=== PATIENT | male | born 1950 | race Caucasian/White ===

== ENCOUNTER → 2017-02-21 | Outpatient (CLI) | payer BC ==
[~2017-02-21] MED LIST: CHOL100010 PO; CLR10 PO; FLUT0.15 NAE; MULT-513 PO; OXYC-57 PO; PSYL48.59 PO; ZNTT/150 PO; [UNRECOGNIZED DRUG - CODE] NAE
[2017-02-21 14:16] LABS: BASO % 0.4 %; BASO ABS # 0.03 K/uL (0-0.2); COMPLETE YES; EOS % 3.5 %; HEMATOCRIT 46.5 % (42-52); IG% 0.1 %; LYMPH % 37.1 %; LYMPH ABS # 2.64 K/uL (1.2-3.4); MEAN CORPUSCULAR HEMOGLOBIN 31.6 pg (25-34); MEAN PLATELET VOLUME 9.7 fL (7.4-10.4); MONO % 7.9 %; PLATELET COUNT 135 K/uL (130-400); WHITE BLOOD COUNT 7.12 K/uL (4.8-10.8)
[2017-02-21 14:35] LABS: ALT/SGPT 37 U/L (12-78); AST/SGOT 25 U/L (15-37); BLOOD UREA NITROGEN 11 mg/dl (7-18); BUN/CREATININE RATIO 11.6 (10-20); CALCIUM 8.9 mg/dl (8.5-10.1); CARBON DIOXIDE 32 mmol/L (21-32); CHLORIDE 103 mmol/L (98-107); CHOLESTEROL 191 mg/dl (0-200); CREATININE 0.94 mg/dl (0.60-1.40); GLUCOSE 101 mg/dl (70-99); SODIUM 140 mmol/L (136-145)
[2017-02-21 14:40] LABS: ALB/GLOB RATIO 0.9 (0.9-2); ALKALINE PHOSPHATASE 60 U/L (45-117); CHOLESTEROL/HDL RATIO 3.3; HDL CHOLESTEROL 58 mg/dl; LDL CHOLESTEROL CALCULATED 104 mg/dl; TRIGLYCERIDES 144 mg/dl (0-150); VERY LOW DENSITY LIPOPROT CALC 29 mg/dl
== END | disposition home or self-care (01) ==
LOC: C.LABBC 09:47
PROVIDERS: ATTEND Nurse Practitioner Family
DX: K21.0 Gastro-esophageal reflux disease with esophagitis (principal); K76.0 Fatty (change of) liver, not elsewhere classified; Z13.220 Encounter for screening for lipoid disorders; R73.01 Impaired fasting glucose; R74.0 Nonspecific elevation of levels of transaminase and lactic acid dehydrogenase [LDH]; Z12.5 Encounter for screening for malignant neoplasm of prostate

== ENCOUNTER 2017-02-23 08:46 | Emergency (ER) | payer BC ==
[~2017-02-23] VITALS: Ht 175.3 cm; Wt 76.0 kg
[~2017-02-23 08:46] MED LIST changes: -FLUT0.15 NAE; -OXYC-57 PO; -PSYL48.59 PO
[2017-02-23 08:49] VITALS: TEMP 36.3; Ht 175.3 cm; Wt 76.0 kg
[2017-02-23 09:23] LABS: BASO % 0.3 %; BASO ABS # 0.02 K/uL (0-0.2); COMPLETE YES; EOS % 3.2 %; HEMATOCRIT 43.9 % (42-52); IG% 0.1 %; LYMPH % 29.3 %; LYMPH ABS # 2.03 K/uL (1.2-3.4); MEAN CORPUSCULAR HEMOGLOBIN 31.7 pg (25-34); MEAN CORPUSCULAR HGB CONC 34.4 g/dl (32-36); MEAN PLATELET VOLUME 9.1 fL (7.4-10.4); MONO % 8.9 %; NEUT % 58.2 %; PLATELET COUNT 122 K/uL (130-400); RED BLOOD COUNT 4.77 M/uL (4.7-6.1); WHITE BLOOD COUNT 6.93 K/uL (4.8-10.8)
--- NOTE | 2017-02-23 09:34 | DIAGNOSTIC IMAGING REPORT ---
CT SCAN OF THE ABDOMEN AND PELVIS WITHOUT CONTRAST CLINICAL HISTORY: Right-sided abdominal pain COMPARISON STUDY: Renal ultrasound dated 12/25/2015 TECHNIQUE: CT scan of the abdomen and pelvis was performed from the lung bases to the proximal femurs. Images are reviewed in the axial, sagittal, and coronal planes. IV contrast was not administered for this examination. A dose lowering technique was utilized adhering to the principles of ALARA. CT DOSE: 574.21 mGy.cm FINDINGS: Lower chest: The heart is normal in size and configuration, without pericardial effusion. The lung bases and pleural spaces are clear. Liver: The unenhanced liver is normal in size, contour, and attenuation. There is no intrahepatic biliary ductal dilatation. Gallbladder: Unremarkable. Spleen: Normal in size and attenuation. Pancreas: Unremarkable. Adrenal glands: There is minor bilateral adrenal gland thickening Kidneys: There is a 2 mm right renal calculus. There are bilateral parapelvic cysts. No ureteral or bladder calculi are visualized. Bowel: There are no transition zones indicate bowel obstruction. The appendix is mildly enlarged measuring 8 mm. The appendix contains air and stool. There are no periappendiceal inflammatory changes. There are no findings to indicate acute appendicitis. There is no evidence of acute diverticulitis. Peritoneum: There is no intraperitoneal free air or abdominal ascites. Vasculature: The abdominal aorta is normal in course and caliber. Adenopathy: There is very slight infiltration of the central mesentery with mesenteric lymph nodes are the upper limits of normal in size. Pelvic viscera: The prostate is enlarged measuring 49 mm Skeletal structures: No destructive osseous lesions are visualized. There are degenerative changes present within the lumbar spine and hips. IMPRESSION: 1. Nonobstructing 2 mm right renal calculus 2. No ureteral or bladder calculi identified 3. No evidence of bowel obstruction. No evidence of free air 4. No evidence of acute diverticulitis. No evidence of acute appendicitis 5. Nonspecific slight infiltration central mesentery with mildly prominent mesenteric lymph nodes. Electronically signed by: Tristen Youngblood M.D. 02/23/2017 9:33 AM Dictated Date/Time: 02/23/2017 9:28 AM
[2017-02-23 09:39] LABS: BUN/CREATININE RATIO 14.5 (10-20); CREATININE 0.93 mg/dl (0.60-1.40); POTASSIUM 3.7 mmol/L (3.5-5.1)
[2017-02-23] MEDS ORDERED: FLUT0.15 NAE (09:43)
[2017-02-23] MEDS ORDERED: PSYL48.59 PO (09:43)
[2017-02-23 10:15] LABS: URINE APPEARANCE CLEAR (CLEAR); URINE BILIRUBIN NEG (NEG); URINE COLOR YELLOW; URINE NITRITE NEG (NEG); URINE PH 6.5 (4.5-7.5); URINE SPECIFIC GRAVITY 1.015 (1.000-1.030); UROBILINOGEN NEG (NEG)
[2017-02-23 10:19] LABS: MANUAL MICROSCOPIC REQUIRED? NO; REVIEW REQ? NO
[2017-02-23] MEDS ORDERED: OXYC-57 PO (10:36)
[2017-02-23] MEDS ORDERED: PERCOCET HOME PACK PO STA (10:37)
[2017-02-23 10:58] VITALS: BP 121/78; PULSE 65; O2SAT 99
--- NOTE | 2017-02-23 12:34 | EMERGENCY ROOM VISIT NOTE ---
History Report prepared by Paulo: Justina Mercer Under the Supervision of: Dr. Jermaine Walker M.D. First contact with patient: 08:53 Chief Complaint: ABDOMINAL PAIN Stated Complaint: R ABD PAIN UNDER RIB History of Present Illness The patient is a 66 year old male who presents to the Emergency Room with complaints of constant abdominal pain starting three hours ago. The patient states that he had the same pain two weeks ago that passed in an hour. He states that he assumed it was indigestion or gas. The patient reports that the pain is under his rib. He states that both times that he has had this pain it was right when he woke up and is intense. He reports that it appears to dissipate as time goes on. The patient denies back pain, pain with a deep breath , ever having abdominal surgery, and a history of kidney stones. The patient notes that he has had atrial flutter in the past. He also notes that he has had cysts on his kidney that were determined to be benign via a government employee. He states that he was told he has a fatty liver and notes that he quit drinking 3- 4 years ago. Source of History: patient Onset: 3 hours ago Position: abdomen Quality: other ("similar to inddigestion") Timing: constant Associated Symptoms: No back pain Review of Systems See HPI for pertinent positives & negatives. A total of 10 systems reviewed and were otherwise negative. Past Medical & Surgical Medical Problems: (1) Atrial flutter (2) Fatty liver (3) Kidney cysts Family History Patient reports no known family medical history. Social History Smoking Status: Former Smoker Marital Status: Housing Status: lives with significant other Current/Historical Medications Scheduled Cholecalciferol (Vitamin D), 2,000 PO DAILY Fluticasone Propionate (Nasal) (Flonase Allergy Relief), 1 SPRAY GIANNA DAILY Loratadine (Claritin), 10 MG PO DAILY Multivitamins/Minerals (Mvi With Minerals), 1 TAB PO DAILY Psyllium (Metamucil), 1 DOSE PO DAILY Scheduled PRN Oxycodone/Acetaminophen 5MG/325MG (Percocet 5MG/325MG), 1-2 TAB PO Q4H PRN for Pain Ranitidine (Zantac), 150 MG PO DAILY PRN for REFLUX Allergies Coded Allergies: Penicillins (Unverified Allergy, Mild, " A CHILD" UNKNOWN REACTION, ) Physical Exam Vital Signs Date Time Temp Pulse Resp B/P (MAP) Pulse Ox O2 Delivery O2 Flow Rate FiO2 02/23/17 10:58 65 18 121/78 99 02/23/17 09:31 68 02/23/17 08:49 36.3 74 20 126/81 98 Room Air Physical Exam GENERAL: Patient is a healthy-appearing well-nourished HEAD: Normocephalic atraumatic EYES: Ocular movements intact pupils equal and react to light OROPHARYNX mucous membranes are moist no exudates present no erythema or edema present NECK: Supple no nuchal rigidity CHEST: Good equal expansion LUNGS: Clear and equal to auscultation CARDIAC: Normal S1 and S2 ABDOMEN: Soft nontender no guarding BACK: No CVA tenderness EXTREMITIES: No pain upon palpation normal muscle strength in all groups no clubbing cyanosis or edema NEURO: Patient is following commands and answering questions appropriately. Alert and oriented x3 Cranial Nerves 2-12 grossly intact Medical Decision & Procedures ER Provider Diagnostic Interpretation: Radiology results as stated below per my review and radiologist interpretation: CT SCAN OF THE ABDOMEN AND PELVIS WITHOUT CONTRAST CLINICAL HISTORY: Right-sided abdominal pain COMPARISON STUDY: Renal ultrasound dated 12/25/2015 TECHNIQUE: CT scan of the abdomen and pelvis was performed from the lung bases to the proximal femurs. Images are reviewed in the axial, sagittal, and coronal planes. IV contrast was not administered for this examination. A dose lowering technique was utilized adhering to the principles of ALARA. CT DOSE: 574.21 mGy.cm FINDINGS: Lower chest: The heart is normal in size and configuration, without pericardial effusion. The lung bases and pleural spaces are clear. Liver: The unenhanced liver is normal in size, contour, and attenuation. There is no intrahepatic biliary ductal dilatation. Gallbladder: Unremarkable. Spleen: Normal in size and attenuation. Pancreas: Unremarkable. Adrenal glands: There is minor bilateral adrenal gland thickening Kidneys: There is a 2 mm right renal calculus. There are bilateral parapelvic cysts. No ureteral or bladder calculi are visualized. Bowel: There are no transition zones indicate bowel obstruction. The appendix is mildly enlarged measuring 8 mm. The appendix contains air and stool. There are no periappendiceal inflammatory changes. There are no findings to indicate acute appendicitis. There is no evidence of acute diverticulitis. Peritoneum: There is no intraperitoneal free air or abdominal ascites. Vasculature: The abdominal aorta is normal in course and caliber. Adenopathy: There is very slight infiltration of the central mesentery with mesenteric lymph nodes are the upper limits of normal in size. Pelvic viscera: The prostate is enlarged measuring 49 mm Skeletal structures: No destructive osseous lesions are visualized. There are degenerative changes present within the lumbar spine and hips. IMPRESSION: 1. Nonobstructing 2 mm right renal calculus 2. No ureteral or bladder calculi identified 3. No evidence of bowel obstruction. No evidence of free air 4. No evidence of acute diverticulitis. No evidence of acute appendicitis 5. Nonspecific slight infiltration central mesentery with mildly prominent mesenteric lymph nodes. Electronically signed by: Tristen Youngblood M.D. 02/23/2017 9:33 AM Dictated Date/Time: 02/23/2017 9:28 AM Laboratory Results 02/23/17 09:12 Red Blood Count 4.77, Mean Corpuscular Volume 92.0, Mean Corpuscular Hemoglobin 31.7, Mean Corpuscular Hemoglobin Concent 34.4, Mean Platelet Volume 9.1, Neutrophils (%) (Auto) 58.2, Lymphocytes (%) (Auto) 29.3, Monocytes (%) (Auto) 8.9, Eosinophils (%) (Auto) 3.2, Basophils (%) (Auto) 0.3, Neutrophils # (Auto) 4.03, Lymphocytes # (Auto) 2.03, Monocytes # (Auto) 0.62, Eosinophils # (Auto) 0.22, Basophils # (Auto) 0.02 02/23/17 09:12 Test 02/23/17 09:12 02/23/17 10:00 White Blood Count 6.93 K/uL (4.8-10.8) Red Blood Count 4.77 M/uL (4.7-6.1) Hemoglobin 15.1 g/dL (14.0-18.0) Hematocrit 43.9 % (42-52) Mean Corpuscular Volume 92.0 fL (80-100) Mean Corpuscular Hemoglobin 31.7 pg (25-34) Mean Corpuscular Hemoglobin Concent 34.4 g/dl (32-36) Platelet Count 122 K/uL (130-400) Mean Platelet Volume 9.1 fL (7.4-10.4) Neutrophils (%) (Auto) 58.2 % Lymphocytes (%) (Auto) 29.3 % Monocytes (%) (Auto) 8.9 % Eosinophils (%) (Auto) 3.2 % Basophils (%) (Auto) 0.3 % Neutrophils # (Auto) 4.03 K/uL (1.4-6.5) Lymphocytes # (Auto) 2.03 K/uL (1.2-3.4) Monocytes # (Auto) 0.62 K/uL (0.11-0.59) Eosinophils # (Auto) 0.22 K/uL (0-0.5) Basophils # (Auto) 0.02 K/uL (0-0.2) RDW Standard Deviation 45.1 fL (36.4-46.3) RDW Coefficient of Variation 13.4 % (11.5-14.5) Immature Granulocyte % (Auto) 0.1 % Immature Granulocyte # (Auto) 0.01 K/uL (0.00-0.02) Anion Gap 4.0 mmol/L (3-11) Est Creatinine Clear Calc Drug Dose 79.2 ml/min Estimated GFR () 99.5 Estimated GFR (Non- 85.8 BUN/Creatinine Ratio 14.5 (10-20) Calcium Level 9.0 mg/dl (8.5-10.1) Total Bilirubin 1.1 mg/dl (0.2-1) Direct Bilirubin 0.3 mg/dl (0-0.2) Aspartate Amino Transf (AST/SGOT) 27 U/L (15-37) Alanine Aminotransferase (ALT/SGPT) 35 U/L (12-78) Alkaline Phosphatase 81 U/L (45-117) Total Protein 8.1 gm/dl (6.4-8.2) Albumin 3.7 gm/dl (3.4-5.0) Lipase 161 U/L (73-393) Urine Color YELLOW Urine Appearance CLEAR (CLEAR) Urine pH 6.5 (4.5-7.5) Urine Specific Satin 1.015 (1.000-1.030) Urine Protein NEG (NEG) Urine Glucose (UA) NEG (NEG) Urine Ketones NEG (NEG) Urine Occult Blood NEG (NEG) Urine Nitrite NEG (NEG) Urine Bilirubin NEG (NEG) Urine Urobilinogen NEG (NEG) Urine Leukocyte Esterase NEG (NEG) Labs reviewed by ED physician. Medications Administered Medications (Trade) Dose Ordered Sig/Antoinette Route Start Time Stop Time Status Last Admin Dose Admin Oxycodone/ Acetaminophen (Percocet 5/ 325MG Home Pack) 1 homepack UD STAT PO 02/23/17 10:37 02/23/17 10:38 DC 02/23/17 10:50 1 HOMEPACK ED Course 0854: Past medical records reviewed. The patient was evaluated in room B12B. A complete history and physical examination was performed. 0953: I reevaluated the patient and he is doing better. 1035: Upon reexamination the patient is resting comfortably. I discussed results and treatment plan with the patient. He verbalizes agreement and understanding. The patient is ready for discharge. 1037: Ordered Oxycodone/ Acetaminophen 1 homepack PO. Medical Decision Etiologies such as appendicitis, diverticulitis, PUD, biliary pathology, UTI, pancreatitis, obstruction, mesenteric ischemia, aortic pathology, infections, inflammatory bowel disease, renal colic, as well as others were entertained. This is a 66-year-old male who presents emergency department complaining of right-sided flank pain. The patient is nontender on examination. Serial abdominal examinations were performed on the patient in the emergency department and at no tender the patient exhibited abdominal tenderness. The patient reports that his pain is been ongoing for the past 2 weeks and while his appendix is minimally enlarged on the CAT scan of the abdomen and pelvis he does not have any tenderness when I'm pressing on that area. In addition the patient does not have an elevation in his white blood count cell count has a normal renal profile has a normal liver profile has a normal lipase. He does have an enlarged prostate. I stressed that he follow-up with urology for this. He has no evidence of blood in his urine. He does have a small 2 mm kidney stone. I feel that the patient could have passed a very small kidney stone. I stressed the need to return to the emergency department if the patient develops severe abdominal pain or fevers. Patient and are in agreement with the treatment plan. Medication Reconcilliation Current Medication List: was personally reviewed by me Blood Pressure Screening Patient's blood pressure: Normal blood pressure Blood pressure disposition: Did not require urgent referral Impression Primary Impression: Abdominal pain Scribe Attestation The scribe's documentation has been prepared under my direction and personally reviewed by me in its entirety. I confirm that the note above accurately reflects all work, treatment, procedures, and medical decision making performed by me. Departure Information Dispostion Home / Self-Care Prescriptions Oxycodone/Acetaminophen 5MG/325MG (PERCOCET 5MG/325MG) Tab 1-2 TAB PO Q4H Y for Pain, #14 TAB Prov: Jermaine Walker MD 02/23/17 Referrals Lyssa Santos C.R.N.P. (PCP) Forms Call Back Authorization, HOME CARE DOCUMENTATION FORM, IMPORTANT VISIT INFORMATION Patient Instructions My [facility] Additional Instructions You received narcotic or benzodiazepene medication while in the emergency room today. This is an addictive medication that may cause drowziness as well as constipation. Do not drive, operate heavy machinery, or drink alcohol under the influence of this medication. Take 600 mg Ibuprofen every 6 hours Take Percocet for breakthrough pain You have been examined and treated today on an emergency basis only. This is not a substitute for, or an effort to provide, complete comprehensive medical care. It is impossible to recognize and treat all injuries or illnesses in a single emergency department visit. It is therefore important that you follow up closely with your PCP. Call as soon as possible for an appointment. Thank you for your time and consideration. I look forward to speaking with you again soon. Please don't hesitate to call us if you have any questions. Problem Qualifiers Primary Impression: Abdominal pain Abdominal location: unspecified location Qualified Codes: R10.9 - Unspecified abdominal pain
== END 2017-02-23 11:00 | disposition home or self-care (01) ==
LOC: C.EDB 08:48
DX: R10.9 Unspecified abdominal pain (principal); K76.0 Fatty (change of) liver, not elsewhere classified; N28.1 Cyst of kidney, acquired; Z87.891 Personal history of nicotine dependence

== ENCOUNTER → 2017-03-08 | Outpatient (CLI) | payer BC ==
[~2017-03-08] MED LIST changes: +FLUT0.15 NAE; +OXYC-57 PO; +PSYL48.59 PO; -[UNRECOGNIZED DRUG - CODE] NAE
--- NOTE | 2017-03-08 10:11 | DIAGNOSTIC IMAGING REPORT ---
SI JOINTS 3 OR MORE VIEWS CLINICAL HISTORY: Spondyloarthropathy. COMPARISON STUDY: CT of the abdomen and pelvis February 23, 2017. FINDINGS: The sacroiliac joints are intact. There is mild partial ankylosis of the sacroiliac joints. No fracture or suspicious lesion is identified. No erosions are identified. IMPRESSION: 1. 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 2. No erosions identified. Electronically signed by: Mikal Bingham M.D. 03/08/2017 10:10 AM Dictated Date/Time: 03/08/2017 10:08 AM
--- NOTE | 2017-03-08 10:13 | DIAGNOSTIC IMAGING REPORT ---
R HAND MIN 3 VIEWS ROUTINE CLINICAL HISTORY: Arthralgia of metacarpophalangeal joint. Hand arthritis. COMPARISON: Right hand radiographs January 07, 2015. FINDINGS: Alignment of the right hand is anatomic. No fracture or suspicious lesion is identified. No erosions are identified. Joint spaces are preserved. There is mild osteophytosis within multiple articulations of the right hand. IMPRESSION: 1. 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 2. No radiographic evidence of an erosive/inflammatory arthropathy. Electronically signed by: Mikal Bingham M.D. 03/08/2017 10:12 AM Dictated Date/Time: 03/08/2017 10:10 AM
--- NOTE | 2017-03-08 10:13 | DIAGNOSTIC IMAGING REPORT ---
L HAND MIN 3 VIEWS ROUTINE CLINICAL HISTORY: M79.643 Arthralgia of metacarpophalangeal [id number] Hand arth COMPARISON: None. DISCUSSION: No fractures or dislocations are visualized. There are osteoarthritic changes the level the first carpal metacarpal joint. There are mild osteoarthritic changes the level the first metacarpal phalangeal joint. There is no evidence of erosive disease. IMPRESSION: 1. No acute fractures 2. No evidence of erosive disease 3. Mild osteoarthritic changes most pronounced the level the first carpometacarpal joint and first metacarpal phalangeal joint Electronically signed by: Tristen Youngblood M.D. 03/08/2017 10:11 AM Dictated Date/Time: 03/08/2017 10:10 AM
[2017-03-08 12:42] LABS: RHEUMATOID FACTOR < 10.0 U/mL (0-15); TOTAL IRON BINDING CAPACITY 285 mcg/dl (250-450)
== END | disposition home or self-care (01) ==
LOC: C.RAD1850 09:32
PROVIDERS: ATTEND Internal Medicine Rheumatology
DX: M19.049 Primary osteoarthritis, unspecified hand (principal); M79.643 Pain in unspecified hand; M47.819 Spondylosis without myelopathy or radiculopathy, site unspecified; M54.2 Cervicalgia

== ENCOUNTER → 2017-05-26 | Outpatient (CLI) | payer BC ==
[~2017-05-26] MED LIST changes: +ASCA500 PO; +FLM4 PO; +HYDR-5688 PO; +IBUP-1450 PO; +RANI150T85 PO; +VTMD1000 PO; -ZNTT/150 PO; +[UNRECOGNIZED DRUG - OTHER]
[2017-05-26 12:27] LABS: BASO % 0.8 %; BASO ABS # 0.04 K/uL (0-0.2); EOS % 3.3 %; EOS ABS # 0.17 K/uL (0-0.5); HEMATOCRIT 44.8 % (42-52); IG# 0.01 K/uL (0.00-0.02); LYMPH % 37.6 %; LYMPH ABS # 1.96 K/uL (1.2-3.4); MEAN CELL VOLUME 92.4 fL (80-100); MEAN CORPUSCULAR HEMOGLOBIN 30.9 pg (25-34); MEAN CORPUSCULAR HGB CONC 33.5 g/dl (32-36); MEAN PLATELET VOLUME 9.9 fL (7.4-10.4); MONO % 8.3 %; MONO ABS # 0.43 K/uL (0.11-0.59); NEUT % 49.8 %; PLATELET COUNT 131 K/uL (130-400); RED CELL DISTRIBUTION WIDTH CV 13.4 % (11.5-14.5); RED CELL DISTRIBUTION WIDTH SD 45.3 fL (36.4-46.3); WHITE BLOOD COUNT 5.21 K/uL (4.8-10.8)
[2017-05-26 12:46] LABS: ALBUMIN 3.6 gm/dl (3.4-5.0); ALT/SGPT 36 U/L (12-78); AST/SGOT 27 U/L (15-37); BLOOD UREA NITROGEN 14 mg/dl (7-18); CALCIUM 8.9 mg/dl (8.5-10.1); CARBON DIOXIDE 31 mmol/L (21-32); CREATININE 0.87 mg/dl (0.60-1.40); GLUCOSE 85 mg/dl (70-99); POTASSIUM 3.9 mmol/L (3.5-5.1); SODIUM 140 mmol/L (136-145)
[2017-05-26 12:49] LABS: ALKALINE PHOSPHATASE 55 U/L (45-117); TOTAL PROTEIN 7.8 gm/dl (6.4-8.2)
== END | disposition home or self-care (01) ==
LOC: C.LAB 11:23
PROVIDERS: ATTEND Surgery
DX: K80.50 Calculus of bile duct without cholangitis or cholecystitis without obstruction (principal); K83.8 Other specified diseases of biliary tract

== ENCOUNTER 2017-05-31 05:22 | Observation (INO) | payer BC ==
[2017-05-29 15:31] VITALS: BMI 24.0
[2017-05-31] VITALS (9 sets, daily range): BP systolic 99–130; BP diastolic 60–74; PULSE 52–71; TEMP 36.5–36.7; O2SAT 94–100; Ht 175.3 cm; Wt 75.0 kg
[~2017-05-31] VITALS: Ht 175.3 cm; Wt 75.0 kg
[~2017-05-31 05:22] MED LIST changes: -CHOL100010 PO; -HYDR-5688 PO; -OXYC-57 PO
[2017-05-31] MEDS ORDERED: CLINDAMYCIN IV 900 MG in DEXTROSE 5% 50ML 44 ML IV SCH (06:00)
[2017-05-31] MEDS ORDERED: LACTATED RINGER'S 1000ML 1,000 ML IV SCH ×2 (06:00→09:30)
[2017-05-31] MEDS ORDERED: CLINDAMYCIN IV 900 MG in DEXTROSE 5% 50ML IV SCH (06:00)
[2017-05-31] MEDS ORDERED: BUPIVACAINE 0.5 % 5 MG/1 ML MPF 30ML VIAL ONE (06:37)
[2017-05-31] MEDS ORDERED: FENTANYL CITRATE INJ 50 MCG/1 ML 2 ML VIAL ONE (06:45)
[2017-05-31] MEDS ORDERED: MIDAZOLAM HCL 1 MG/ML 2ML VIAL ONE (06:45)
--- NOTE | 2017-05-31 06:47 | History & Physical Bridge Note ---
H&P Re-Evaluation Bridge Note: I have examined the patient, reviewed the History & Physical and in the interval since the performance of the History & Physical I have noted the following changes of clinical significance: No changes noted
[2017-05-31] MEDS ORDERED: GLYCOPYRROLATE INJ 0.2 MG/ML VIAL ONE (07:40)
[2017-05-31] MEDS ORDERED: ROCURONIUM BROMIDE 10 MG/ML 5 ML VIAL IV ONE (07:40)
[2017-05-31] MEDS ORDERED: NEOSTIGMINE METHYLSULFATE 5 MG/5 ML SYR ONE (07:40)
[2017-05-31] MEDS ORDERED: SUCCINYLCHOLINE CHLORIDE 20 MG/ML 10 ML VIAL IV ONE (07:40)
[2017-05-31] MEDS ORDERED: ONDANSETRON INJ 2 MG/ML 2 ML VIAL ONE (07:40)
[2017-05-31] MEDS ORDERED: PROPOFOL IV EMULSION 10 MG/ML 20 ML VIAL IV ONE (07:40)
[2017-05-31] MEDS ORDERED: DEXAMETHASONE SOD INJ 4 MG/ML VIAL ONE (07:40)
--- NOTE | 2017-05-31 07:57 | [facility] Operative Report ---
Operative Report Operative Date May 31, 2017. Pre-Operative Diagnosis Cholecystitis Post-Operative Diagnosis Cholecystitis, umbilical hernia Procedure(s) Performed Laparoscopic Cholecystectomy Umbilical hernia repair Surgeon Dr Renee Filter Tank Tender Helper Surgeon(s) Ally Gustafson PA-C Estimated Blood Loss 10ML Findings scar tissue, distended gallbladder Specimens A. Gallbladder B. Hernia contents Drains None Anesthesia Type General Complication(s) none Disposition Recovery Room / PACU I attest to the content of the Intraoperative Record and any orders documented therein. Any exceptions are noted below.
[2017-05-31] MEDS ORDERED: MoRPHine SULFATE 2 MG/ML CARP IV PRN (08:00)
[2017-05-31] MEDS ORDERED: PROMETHAZINE HCL INJ 25 MG in SODIUM CHLORIDE 0.9% 50ML 50 ML IV PRN (08:00)
[2017-05-31] MEDS ORDERED: MoRPHine SULFATE 4 MG/ML 1 ML CARP\\VIAL IV PRN (08:00)
[2017-05-31] MEDS ORDERED: ONDANSETRON INJ 2 MG/ML 2 ML VIAL IV PRN ×2 (08:00→08:15)
[2017-05-31] MEDS ORDERED: HYDROCODONE/ACETAMIN 5/325MG TAB PO PRN ×2 (08:00)
--- NOTE | 2017-05-31 08:14 | Anesthesiology Progress Note ---
Anesthesia Post Op Note Date & Time May 31, 2017 at 08:13 Notes Mental Status: alert / awake / arousable, participated in evaluation Pt Amnestic to Procedure: Yes Nausea / Vomiting: adequately controlled Pain: adequately controlled Airway Patency, RR, SpO2: stable & adequate BP & HR: stable & adequate Hydration State: stable & adequate Anesthetic Complications: no major complications apparent
[2017-05-31] MEDS ORDERED: EpHEDrine SULFATE INJ 50 MG/ML AMP IV PRN (08:15)
[2017-05-31] MEDS ORDERED: ATROPINE SULFATE 0.1 MG/ML 5ML SYR IV PRN (08:15)
[2017-05-31] MEDS ORDERED: HYDROmorphone INJ 1 MG/ML SYR IV PRN (08:15)
[2017-05-31] MEDS: FENTANYL CITRATE INJ 50 MCG/1 ML 2 ML VIAL IV PRN ×2 (08:20→08:29)
--- NOTE | 2017-05-31 09:03 | OPERATIVE REPORT ---
DATE OF OPERATION: 05/31/2017 NAME OF OPERATION: Laparoscopic cholecystectomy with umbilical hernia repair. PREOPERATIVE DIAGNOSIS: Biliary colic with cholelithiasis. POSTOPERATIVE DIAGNOSES: Same with umbilical hernia. STAFF SURGEON: Dr. Renee. SERVICE DELIVERY MANAGEMENT CONSULTANT: Ally Gustafson PA-C. ANESTHESIA: General. PROCEDURE: The patient was brought in the operating room and placed on the operating table in supine position. His abdomen was prepped and draped in usual fashion. Pneumatic stockings, orogastric tube were placed. He had a small umbilical hernia. 0.5% plain Marcaine was used to anesthetize the skin and subcutaneous tissue above the umbilicus. Incision made, carrying dissection down, disconnecting the umbilicus from the fascia, entering the sac and placing a balloon cannula. Pneumoperitoneum was produced, and then under visualization, three 5 mm ports were placed, 1 cephalad and 2 laterally. The patient was placed in reverse Trendelenburg position rotated to the left. Gallbladder was grasped and retracted. It was very distended with bile, it was aspirated of bile, and then dissection carried out at the lizzeth hepatis showing some scar tissue, identifying the cystic duct and cystic artery. These were clipped and transected and the gallbladder was dissected away from the liver bed in the usual fashion. It was placed in an Endobag. After appropriate hemostasis and irrigation, the Endobag was removed through the umbilical site. All ports were removed. The fascia at the umbilicus closed using interrupted 0 Ethibond suture. The umbilicus was reattached to the fascia using 2-0 chromic suture. Skin at the umbilicus closed using interrupted 5-0 Prolene suture. The other sites closed using subcuticular 4-0 Monocryl and Steri-Strips. The patient was transferred to recovery room in stable condition. I attest to the content of the Intraoperative Record and any orders documented therein. Any exception s are noted below.
--- NOTE | 2017-05-31 09:05 | OPERATIVE REPORT ---
DATE OF OPERATION: 05/31/2017 ADDENDUM My engineer first assistant helped with prepping, draping, entering the abdominal cavity, exposing the gallbladder, removal of the gallbladder and closure of the wounds. I attest to the content of the Intraoperative Record and any orders documented therein. Any exception s are noted below.
[2017-05-31] MEDS ORDERED: KETOROLAC TROMETHAMINE 30 MG/ML VIAL IV. STA (09:31)
[2017-05-31] MEDS ORDERED: PROMETHAZINE HCL INJ 12.5 MG in SODIUM CHLORIDE 0.9% 50ML 50 ML IV PRN (09:45)
[2017-05-31] MEDS ORDERED: IV FLUIDS COMPLETED PRN (10:00)
[2017-05-31] MEDS: DOCUSATE SODIUM/SENNA 50/8.6MG TAB PO SCH ×2 (11:26→20:47)
[2017-05-31] MEDS ORDERED: HYDR-5688 PO (13:56)
--- NOTE | 2017-05-31 13:58 | Discharge Instructions ---
Discharge Instructions Date of Service May 31, 2017. Admission Reason for Admission: Biliary Sludge, Biliary Colic Discharge Discharge Diagnosis / Problem: chronic cholecystitis, umbilical hernia Discharge Goals Goal(s): Decrease discomfort, Improve function, Improve disease control Activity Recommendations Activity Limitations: as noted below Lifting Limitations: no more than 25 pounds Exercise/Sports Limitations: until after follow-up appointment May Resume Sexual Activity: when tolerated Shower/Bathe: tomorrow Driving or Machine Use: resume 3 days after discharge . Instructions / Follow-Up Instructions / Follow-Up SPECIAL CARE INSTRUCTIONS: * Cover incisions and change daily for comfort/drainage. * leave steri strips in place * May use ibuprofen for pain as tolerated. * Expect some swelling and bruising. Call your doctor if: * Temperature above 101 degrees * Pain not relieved by pain medicine ordered * There is increased drainage or redness from any incision * You have any unanswered questions or concerns [phone]. FOLLOW UP VISIT: If not already scheduled, please call the office for a follow-up visit. for next week- some suture removal OFFICE PHONE NUMBER: Dr. Renee Office Current Hospital Diet Patient's current hospital diet: Regular Diet Discharge Diet Recommended Diet: Regular Diet Procedures Procedures Performed: Laparoscopic Cholecystectomy Umbilical hernia repair Pending Studies Studies pending at discharge: no Medical Emergencies . Who to Call and When: Medical Emergencies: If at any time you feel your situation is an emergency, please call 911 immediately. . Non-Emergent Contact Non-Emergency issues call your: Primary Care Provider, Surgeon . "Provider Documentation" section prepared by Kwame Renee. . VTE Core Measure Inpt VTE Proph given/why not?: SCD's
[2017-05-31] MEDS: IBUPROFEN 600 MG TAB PO PRN ×2 (16:07→21:57)
[2017-06-01 03:32] VITALS: BP 110/51; PULSE 60; TEMP 36.8; O2SAT 95
[2017-06-01] MEDS: IBUPROFEN 600 MG TAB PO PRN (03:49)
[2017-06-01 05:12] LABS: HEMATOCRIT 38.2 % (42-52); HEMOGLOBIN 13.2 g/dL (14.0-18.0); MEAN CELL VOLUME 91.4 fL (80-100); MEAN CORPUSCULAR HEMOGLOBIN 31.6 pg (25-34); MEAN CORPUSCULAR HGB CONC 34.6 g/dl (32-36); PLATELET COUNT 114 K/uL (130-400); RED CELL DISTRIBUTION WIDTH CV 13.3 % (11.5-14.5); RED CELL DISTRIBUTION WIDTH SD 44.3 fL (36.4-46.3); WHITE BLOOD COUNT 9.88 K/uL (4.8-10.8)
[2017-06-01 05:30] LABS: ALBUMIN 3.1 gm/dl (3.4-5.0); CALCIUM 8.5 mg/dl (8.5-10.1); POTASSIUM 3.6 mmol/L (3.5-5.1)
[2017-06-01 05:33] LABS: TOTAL PROTEIN 6.7 gm/dl (6.4-8.2)
--- NOTE | 2017-06-01 07:07 | DISCHARGE SUMMARY ---
DATE OF DISCHARGE: 06/01/2017 PRINCIPAL DIAGNOSES: Chronic cholecystitis and cholelithiasis. PROCEDURES: The patient underwent laparoscopic cholecystectomy. HISTORY OF PRESENT ILLNESS: The patient is a 67-year-old male who has been having intermittent abdominal pain with findings of cholelithiasis. The patient was brought into the hospital on 05/31/2017 where he underwent elective laparoscopic cholecystectomy without problem. He has done quite well overnight and is felt stable for discharge home today, to be followed in the surgical clinic next week.
[2017-06-01 07:35] VITALS: BP 112/65; PULSE 69; TEMP 36.5; O2SAT 97
[2017-06-01 08:07] VITALS: BP 112/65; PULSE 69; TEMP 36.5; O2SAT 97
[2017-06-01] MEDS: DOCUSATE SODIUM/SENNA 50/8.6MG TAB PO SCH (08:51)
--- NOTE | 2017-06-05 09:19 | EDITING REQUIRED CODING QUERY ---
CODING QUERY To promote full compliance with coding requirements relating to patient care, provider participation is requested in all cases of sign erector uncertainty. Please assist us with the question(s) below: Coding Question(s): Please clarify the laterality of the Umbilical Hernia Repair. Physician's Response(s): Thank you Ghislaine ArnelDinorah Rakan Principal Diagnosis: "_that condition established after study, to be chiefly responsible for occasioning the admission of the patient to the hospital for care." Co-Existing Principal Diagnosis: "_when two or more diagnoses equally meet the criteria for principal diagnosis as determined by the circumstances of admission, diagnostic work up, and/or therapy provided, and the Alphabetic Index, Tabular List, or another coding guideline does not provide sequencing direction, any one of the diagnoses may be sequenced first." "When the physician has documented what appears to be a current diagnosis in the body of the record, but has not included the diagnosis in the final diagnostic statement, the physician should be asked whether the diagnosis should be added." (Source Coding Clinic 2 QTR90. p3-4)
--- NOTE | 2017-06-09 08:45 | EDITING REQUIRED CODING QUERY ---
CODING QUERY To promote full compliance with coding requirements relating to patient care, provider participation is requested in all cases of medical biller coder uncertainty. Please assist us with the question(s) below: Coding Question(s): Please clarify what side the umbilical hernia repair was performed on: ( ) Right ( ) Left ( ) Bilateral (X ) Other - Please specifiy ??? it was umbilical- in the MIDLINE Physician's Response(s): Thank you Ghislaine Bledsoe Principal Diagnosis: "_that condition established after study, to be chiefly responsible for occasioning the admission of the patient to the hospital for care." Co-Existing Principal Diagnosis: "_when two or more diagnoses equally meet the criteria for principal diagnosis as determined by the circumstances of admission, diagnostic work up, and/or therapy provided, and the Alphabetic Index, Tabular List, or another coding guideline does not provide sequencing direction, any one of the diagnoses may be sequenced first." "When the physician has documented what appears to be a current diagnosis in the body of the record, but has not included the diagnosis in the final diagnostic statement, the physician should be asked whether the diagnosis should be added." (Source [facility] QTR90. p3-4)
== END 2017-06-01 09:48 | disposition home or self-care (01) ==
LOC: C.ACU 05:22 → C.MSN 08:02 → ENRESERV 08:34
PROVIDERS: ADMIT Surgery; ATTEND Surgery
DX: K80.10 Calculus of gallbladder with chronic cholecystitis without obstruction (principal); K83.8 Other specified diseases of biliary tract; K42.9 Umbilical hernia without obstruction or gangrene; I10 Essential (primary) hypertension; I48.92 Unspecified atrial flutter; Z88.0 Allergy status to penicillin; Z98.890 Other specified postprocedural states; Z82.61 Family history of arthritis; Z80.7 Family history of other malignant neoplasms of lymphoid, hematopoietic and related tissues; Z82.69 Family history of other diseases of the musculoskeletal system and connective tissue